=== PATIENT | female | born 1990 | race Caucasian/White ===

== ENCOUNTER 2023-04-01 01:32 | Emergency (ER) | payer OTHER, SELFPAY ==
[2023-04-01 01:43] VITALS: BP 140/90
--- NOTE | 2023-04-01 02:13 | ED.GENMED ---
History of Present Illness
General
Chief Complaint: Eye Problems
Source: patient
Exam Limitations: none
Time Seen by Provider: 04/01/23 01:52
Travel History
Have you had any contact with someone who has COVID-19?: No
Do you have any symptoms of coronavirus? Fever > 100 degrees, chills, cough, shortness of breath, sore throat, loss of taste or smell, muscle aches, or headache?: No
History of Present Illness
History of Present Illness:
This is a 32 year old female that comes in with c/o left eye swelling. States that she stared tonight with some swelling of the eyelid. States that she called her [facility] and was told to come to the ER. State that she did have Botox injections
on Wednesday and this was in the forehead and around her eyes. States that she feels that the swelling is a little better since she has been up and moving around. States that this started at 6pm and that there is some itching of the eye. States that
she used Aquafor eye drops and Sudafed before going to bed. Then around 11:30pm she awoke and felt that it was a little more swollen and she took Benadryl. Denies any blurred or double vision. Denies any fever, chills, chest pain, SOB, abd pain,
nausea, vomiting, diarrhea, headache, dizziness.
Past History
Past History
ED Past Medical History: None; Negative Asthma, Cancer, HTN or Hypercholesterolemia
ED Past Surgical History: Cholecystectomy and
Social History
Tobacco: Non-smoker
Alcohol: Occasional
Personal:
Living: with family
Review of Systems
Review of Systems
All Other Systems: ROS reviewed and negative except as documented in HPI and ROS
Constitutional: Reports no symptoms; Denies fever or chills
EENT: Reports other (left eye lid swelling)
Respiratory: Reports no symptoms; Denies cough or trouble breathing
Cardiac: Reports no symptoms; Denies chest pain
ABD/GI: Reports no symptoms; Denies abdominal pain, nausea, vomiting or diarrhea
: Reports no symptoms
Musculoskeletal: Reports no symptoms
Skin: Reports no symptoms
Neurological: Reports no symptoms; Denies dizzy or headache
Psychiatric: Reports no symptoms
Phy Exam
General Physical Exam
General Presentation: no apparent distress
General age: appears stated age
General Skin: warm and dry
General Habitus: normal
General Mental: alert
General Hydration: appears well hydrated
ENT Exam
ENT Exam: TM's normal, pharynx normal, neck supple and other (Swelling of the left upper and slightly lower eyelid. Slightly red into bilateral low eye lids noted. Small papules noted at the glabella area down into the bridge of the nose and
bilatral lower eye lids )
Eye Exam
Eye Exam: EOMI and other (Negative for any redness of the scalar, Vessels appear intake without nicking. )
Cardiovascular Exam
Cardiovascular Exam: regular rate/rhythm, no edema and normal peripheral pulses
Pulmonary Exam
Pulmonary Exam: lungs clear, no respiratory distress, no rales, chest non tender, no crackles, no rhonchi, no wheezing and no cough
Musculoskeletal Exam
Musculoskeletal Exam: full ROM
Skin Exam
Skin Exam: normal color, warm/dry and no petechia
Psychiatric Exam
Psychiatric Exam: normal mood/affect
Course
Orders/Labs/Results
Orders:
Orders
04/01/23 02:12
Cephalexin Monohydrate [Keflex] 500 mg PO NOW STA
04/01/23 02:12
Prednisone [Deltasone] 40 mg PO NOW STA
Vital Signs
Initial and Last Documented VS:
Initial Vital Signs
Temp Pulse Resp BP Pulse Ox
99.0 F 109 16 140/90 98
04/01/23 01:43 04/01/23 01:43 04/01/23 01:43 04/01/23 01:43 04/01/23 01:43
Last Documented Vital Signs
Temp Pulse Resp BP Pulse Ox
99.0 F 109 16 140/90 98
04/01/23 01:43 04/01/23 01:43 04/01/23 01:43 04/01/23 01:43 04/01/23 01:43
MDM/Problems Addressed
Differential Diagnosis Includes:
Reaction to Botox, Orbital cellulitis,
MDM/Problems Addressed:
This is a 32 year old female that comes in with c/o left eye swelling. States that this started at 6pm and then she awoke at 11:30 and felt it was more swollen.
Explained that this may be a reaction to the Botox. Will place patient on Steroid and give Oral antibiotics. Patient to follow up with the home health specialist for further evaluation. Return with any concerns
Chronic conditions affecting care:
NA
Acute Exacerbation and/or Progression of Chronic Illness:
NA
*Pulse Oximetry
Patient hypoxic: no
*EKG
Interpreted by ED Provider?: NA
*Information And Data Architect Analyst Interpretation
Rate: Information And Data Architect Analyst- N/A
*Critical Care Note
Total Time (30-74mins, 75-104mins- exclusive of procedures): Not Applicable
ED Attending Note
-
Portions of this chart may have been created with voice recognition software.� Occasional wrong word or��sound alike� substitutions may have occurred due to the inherent limitations of voice recognition software.
Discharge Plan
Departure
Patient Disposition: Home (Routine Discharge)
Date of Disposition: 04/01/23
Time of Disposition: 02:28
Patient with high blood pressure during this ER visit?: Yes
Condition: Good
Covid-19: Not Applicable
Discharge Problem:
Possible reaction to Botox, Cellulitis of left orbit
Instructions: Cellulitis Around the Eye (DC), BLOOD PRESSURE
Prescriptions:
New
prednisone 20 mg tablet
20 mg PO DAILY Qty: 4 0RF
cephalexin 500 mg capsule
500 mg PO BID 7 Days Qty: 14 0RF
No Action
Vitamin Tablet
1 tab PO DAILY
Probiotic
1 tab PO DAILY
acetaminophen 325 MG tablet
650 mg PO Q4HPRN PRN (Reason: mild pain) 0RF
ibuprofen 600 MG tablet
600 mg PO Q4HPRN PRN (Reason: cramps) 0RF
Referrals:
PRIVATE,PHYSICIAN [Family Provider] -
Activity Restrictions/Additional Instructions:
As discussed, this may be a reaction to the Botox or an early cellulitis. You have been given oral steroids here and an antibiotics. Prescription for both the steroid and the antibiotic have been sent to your Pharmacy. You may use a cool cloth to
the eye for comfort. Follow up with your medical information specialist for further evaulatioin. IF YOU HAVE ANY OTHER CONCERNS PLEASE RETURN TO THE EMERGENCY ROOM
Interventions
Interventions:
*Risk Screen - Suicide Last Done: 04/01/23 02:15
*General Assessment Last Done: 04/01/23 02:15
*Neglect/Abuse Screening Last Done: 04/01/23 02:15
*ED COVID-19 Vaccine History Last Done: 04/01/23 02:15
[2023-04-01] MEDS: KEFLEX 500 MG PO (02:25)
[2023-04-01] MEDS: DELTASONE 40 MG PO (02:25)
== END 2023-04-01 02:36 | disposition home or self-care (01) ==
LOC: EMR 01:32
PROVIDERS: EMERGENCY PHYSICIAN Emergency Medicine
DX: H05.012 Cellulitis of left orbit (principal); R03.0 Elevated blood-pressure reading, without diagnosis of hypertension
CPT/HCPCS: 99283

== ENCOUNTER 2023-04-22 01:47 | Emergency (ER) | payer OTHER, SELFPAY ==
[2023-04-22 02:01] VITALS: BP 119/88
--- NOTE | 2023-04-22 03:50 | ED.GENMED ---
History of Present Illness
General
Chief Complaint: Eye Problems
Source: patient and previous hospital records (Previous ED visit for similar complaint April 01, 2023)
Exam Limitations: none
Time Seen by Provider: 04/22/23 03:42
Nursing documentation reviewed up to this point in time: agreed with
Travel History
Have you had any contact with someone who has COVID-19?: No
Do you have any symptoms of coronavirus? Fever > 100 degrees, chills, cough, shortness of breath, sore throat, loss of taste or smell, muscle aches, or headache?: No
History of Present Illness
History of Present Illness:
This is a 32-year-old woman who presents with left upper eyelid itching and swelling that began this evening. Similar itching and swelling noted 1 month ago for which she was evaluated in this ED April 01 and diagnosed with cellulitis of her
left upper eyelid placed on a course of prednisone and Keflex with resolution.
She denies recent change in facial products but does admit to her face/skin being 'sensitive'
She denies drainage from her eye, denies pain, no vision difficulty, no headache. She has noticed mild nasal congestion and intermittent ear fullness but has not had a fever nor chills.
Past History
Past History
ED Past Medical History: None; Negative Asthma, Cancer, HTN or Hypercholesterolemia
ED Past Surgical History: Cholecystectomy and
Social History
Tobacco: Non-smoker
Alcohol: Occasional
Personal:
Living: with family
Family History
Family History: Other (Noncontributory)
Phy Exam
Physical Exam
Physical Exam:
GENERAL: Alert , in no apparent distress
EYE: pupils equal and reactive. anicteric. There is moderate urticarial-like swelling of left upper eyelid. No erythema, no heat, no drainage. Conjunctiva and sclera are clear.
NECK: Supple, nontender, no meningismus, no significant adenopathy.
ENT: posterior pharynx is clear, oral mucosa is moist. TM clear b/l, nares have mildly boggy pale blue turbinates without rhinorrhea.
CARDIAC: Regular rate and rhythm. no murmur.
LUNGS: Clear breath sounds bilaterally, no acute respiratory distress, no wheezes/rales/rhonchi
ABDOMEN: Soft, nondistended, without focal tenderness
NEUROLOGICAL: Alert and oriented x3, no focal neuro deficits. Gait is linder and steady.
SKIN: Warm and dry, normal color, skin intact. No rash.
MUSCULOSKELETAL: No C/C/E. peripheral pulses are full and equal b/l. No palpable tenderness.
PSYCH: Normal and appropriate interaction.
Course
Orders/Labs/Results
Orders:
Orders
04/22/23 03:49
Prednisone [Deltasone] 50 mg PO NOW STA
04/22/23 04:29
Triamcinolone Cream [Aristocort/Triamcinolone 0.1% Cream] See Dose Instructions TOPICAL NOW STA
Vital Signs
Initial and Last Documented VS:
Initial Vital Signs
Temp Pulse Resp BP Pulse Ox
98.7 F 85 16 119/88 99
04/22/23 02:01 04/22/23 02:01 04/22/23 02:01 04/22/23 02:01 04/22/23 02:01
Last Documented Vital Signs
Temp Pulse Resp BP Pulse Ox
98.7 F 85 16 119/88 99
04/22/23 02:01 04/22/23 02:01 04/22/23 02:01 04/22/23 02:01 04/22/23 02:01
MDM/Problems Addressed
Differential Diagnosis Includes:
Patient presents with acute itching, swelling left upper eyelid that appears contact allergy in nature. There is no erythema, no warmth, no drainage from the eye, nothing to suggest cellulitis.
Recommend course of topical steroid cream and a short course of oral steroids.
Discussed the importance of absolute avoidance of rubbing, scratching her eye as this will definitely worsen local swelling.
She may apply cool compresses, elevate head of bed at nighttime.
Prompt follow-up with PCP for recheck.
Return precautions discussed.
*Pulse Oximetry
Patient hypoxic: no
*Critical Care Note
Total Time (30-74mins, 75-104mins- exclusive of procedures): Not Applicable
ED Attending Note
-
Portions of this chart may have been created with voice recognition software.� Occasional wrong word or��sound alike� substitutions may have occurred due to the inherent limitations of voice recognition software.
Discharge Plan
Departure
Patient Disposition: Home (Routine Discharge)
Date of Disposition: 04/22/23
Time of Disposition: 03:50
Patient with high blood pressure during this ER visit?: No
Condition: Good
Discharge Problem:
Contact dermatitis of left upper eyelid
Instructions: Contact Dermatitis (DC)
Prescriptions:
New
prednisone 20 mg tablet
40 mg PO DAILY Qty: 8 0RF
mometasone 0.1 % cream
1 applic topical DAILY PRN (Reason: allergic reaction) 7 Days Qty: 15 0RF
No Action
Vitamin Tablet
1 tab PO DAILY
Probiotic
1 tab PO DAILY
acetaminophen 325 MG tablet
650 mg PO Q4HPRN PRN (Reason: mild pain) 0RF
ibuprofen 600 MG tablet
600 mg PO Q4HPRN PRN (Reason: cramps) 0RF
prednisone 20 mg tablet
20 mg PO DAILY Qty: 4 0RF
cephalexin 500 mg capsule
500 mg PO BID 7 Days Qty: 14 0RF
Referrals:
Dai Lindsay PA-C [Family Provider] - As needed
Interventions
Interventions:
*Risk Screen - Suicide Last Done: 04/22/23 04:05
*General Assessment Last Done: 04/22/23 04:05
*Neglect/Abuse Screening Last Done: 04/22/23 04:15
ED- Fall Risk Assessment Last Done: 04/22/23 04:05
*ED COVID-19 Vaccine History Last Done: 04/22/23 04:05
*Nursing Disposition Last Done: 04/22/23 04:15
Discharge Date and Time
Discharge Date/Time: 04/22/23 04:35
[2023-04-22] MEDS: DELTASONE 50 MG PO (04:14)
[2023-04-22] MEDS: ARISTOCORT/TRIAMCINOLONE 0.1% CREAM 1 APPLIC TOPICAL (04:35)
== END 2023-04-22 04:35 | disposition home or self-care (01) ==
LOC: EMR 01:47
PROVIDERS: EMERGENCY PHYSICIAN Emergency Medicine; FAMILY PHYSICIAN Physician Assistant Medical
DX: L25.9 Unspecified contact dermatitis, unspecified cause (principal)
CPT/HCPCS: 99282

== ENCOUNTER → 2023-07-19 11:49 | Outpatient (REF) | payer OTHER, SELFPAY | LOC: HWRAD 11:49 | PROVIDERS: ATTENDING PHYSICIAN Physician Assistant Medical | DX: M54.6 Pain in thoracic spine (principal) | CPT/HCPCS: 71101; 72072 ==